=== PATIENT | female | born 2000 | race Two or more races ===

== ENCOUNTER 2023-04-13 15:32 | Emergency (ER) | payer OTHER ==
[~2023-04-13] VITALS: Ht 170.2 cm; Wt 63.5 kg
== END 2023-04-13 18:45 | disposition home or self-care (01) ==
LOC: ER 15:32
DX: J45.998 Other asthma (principal); Z20.822 Contact with and (suspected) exposure to COVID-19

== ENCOUNTER 2023-05-13 09:54 | Emergency (ER) | payer OTHER ==
[~2023-05-13] VITALS: Ht 170.2 cm; Wt 63.5 kg
[2023-05-13] MEDS ORDERED: MUPIROCIN15 GM TOP (11:06)
[2023-05-13] MEDS ORDERED: CLEOCIN HCL300 MG PO (11:06)
== END 2023-05-13 11:15 | disposition home or self-care (01) ==
LOC: ER 09:54
DX: L02.01 Cutaneous abscess of face (principal)

== ENCOUNTER 2023-07-25 23:07 | Emergency (ER) | payer OTHER ==
[~2023-07-25] VITALS: Ht 170.2 cm; Wt 63.5 kg
[~2023-07-25 23:07] MED LIST: CLEOCIN HCL300 MG PO; MUPIROCIN15 GM TOP
[2023-07-26 02:11] LABS: HEMATOCRIT 32.1 % (36.0-45.00); HEMOGLOBIN 10.1 g/dL (12.0-15.00); MEAN CELL VOLUME 75.1 fL (80.00-100.00); MEAN CORPUSCULAR HEMOGLOBIN 23.6 pg (27.00-32.0); MEAN CORPUSCULAR HGB CONC 31.4 g/dl (32.0-36.0); PLATELET COUNT 282 K/uL (150-450); RED BLOOD COUNT 4.27 M/uL (4.00-6.00); RED CELL DISTRIBUTION WIDTH 15.9 % (11.5-14.5)
== END 2023-07-26 03:55 | disposition home or self-care (01) ==
LOC: ER 23:07
DX: J06.9 Acute upper respiratory infection, unspecified (principal); J45.909 Unspecified asthma, uncomplicated; Z20.822 Contact with and (suspected) exposure to COVID-19

== ENCOUNTER 2023-12-04 11:11 | Emergency (ER) | payer OTHER ==
[~2023-12-04] VITALS: Ht 170.2 cm; Wt 63.5 kg
[2023-12-04 12:09] LABS: HEMATOCRIT 33.7 % (36.0-45.00); HEMOGLOBIN 10.8 g/dL (12.0-15.00); MEAN CELL VOLUME 70.2 fL (80.00-100.00); MEAN CORPUSCULAR HEMOGLOBIN 22.5 pg (27.00-32.0); MEAN CORPUSCULAR HGB CONC 32.1 g/dl (32.0-36.0); PLATELET COUNT 160 K/uL (150-450)
== END 2023-12-04 14:45 | disposition home or self-care (01) ==
LOC: ER 11:11
PROVIDERS: Emergency Medicine
DX: B34.9 Viral infection, unspecified (principal); D72.819 Decreased white blood cell count, unspecified; Z20.822 Contact with and (suspected) exposure to COVID-19